=== PATIENT | male | born 1925 | race Caucasian/White ===

== ENCOUNTER 2016-07-11 12:28 | Inpatient (IN) | payer MEDICARE, OTHER ==
[~2016-07-11] VITALS: Ht 160 cm; Wt 63.5 kg
[2016-07-11] MEDS ORDERED: METOPROLOL TAR100 M1 PO (14:53)
[2016-07-11] MEDS ORDERED: PROSCAR5 MG PO ×2 (14:53→14:55)
[2016-07-11] MEDS ORDERED: ACETAMINOPHEN500 M1 PO (14:54)
[2016-07-11] MEDS ORDERED: STOOL SOFTENER100 M1 PO (14:54)
[2016-07-11 15:22] VITALS: BP 166/90; BMI 24.8
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
[2016-07-11 15:44] LABS: BASOPHILS 0.5 % (0-2); EOSINOPHILS 1.5 % (0-7); HEMOGLOBIN 15.2 g/dL (13.5-17.5); IMMATURE GRANULOCYTES 0.2 % (0-5); LYMPHOCYTES 13.8 % (15-50); MCH 33.5 pg (26.0-34.0); MCHC 34.5 g/dL (31.0-37.0); MCV 96.9 fL (80.0-100.0); MEAN PLATELET VOLUME 9.7 fL (7.4-10.4); MONOCYTES 10.8 % (2-11); NEUTROPHILS 73.2 % (40-80); PLATELET COUNT 185 10x3/uL (130-400); RBC 4.54 10x6/uL (4.20-6.10); RDW 13.5 % (11.5-14.5); WBC 9.5 10x3/uL (4.8-10.8)
[2016-07-11 16:09] LABS: ALBUMIN 3.7 g/dL (3.4-5.0); ALKALINE PHOSPHATASE 52 U/L (46-116); ALT (SGPT) 24 U/L (10-68); BILIRUBIN - TOTAL 0.54 mg/dL (0.2-1.3); CALC OSMOLALITY 278 mosm/kg (275-300); CALCIUM 9.2 mg/dL (8.5-10.1); CARBON DIOXIDE 34.2 mmol/L (21.0-32.0); CHLORIDE - SERUM 102 mmol/L (98-107); CHOL - HDL RATIO 4.6 ratio (2.3-4.9); CHOLESTEROL, TOTAL 214 mg/dL (0-200); CREATININE - SERUM 0.8 mg/dL (0.6-1.3); GLUCOSE 91 mg/dL (74-106); HDL CHOLESTEROL 47 mg/dL (32-96); LDL CHOLESTEROL 153 mg/dL (0-100); LDL-HDL RATIO 3.3 ratio (1.5-3.5); POTASSIUM - SERUM 4.1 mmol/L (3.5-5.1); PROTEIN - SERUM 7.4 g/dL (6.4-8.2); SODIUM 140 mmol/L (136-145); THYROID STIMULATING HORMONE 1.37 uIU/mL (0.36-3.74); TRIGLYCERIDE 74 mg/dL (30-200); UREA NITROGEN 12 mg/dL (7-18); eGFR NON AFRICAN AMERICAN > 90 mL/min (90-120)
[2016-07-11 16:17] LABS: HEMOGLOBIN A1C 5.8 % (4.8-6.0)
--- NOTE | 2016-07-11 20:05 | NUR ---
RECEIVED IN HALLWAY. VERY CONFUSED. ATTEMPTS TO STAND WITHOUT ASSIST. RESISTANT TO CARE. RESTLESS. UNABLE TO REDIRECT AND REORIENT. PRN ATIVAN 0.5 MG IM GIVEN FOR ANXIETY. AT NURSES STATION ONE ON ONE CARE FOR SAFETY. REDIRECT AND REORIENT NEEDED. CONTINUES TO SIT AT NURSES STATION. CONTINUE PLAN OF CARE
[2016-07-11 23:31] VITALS: BP 156/96
[2016-07-12 07:25] LABS: RAPID PLASMA REAGIN Non Reactive (Non Reactive)
[2016-07-12 08:22] LABS: FOLATE (FOLIC ACID) - SERUM 5.9 ng/mL (>3.0)
--- NOTE | 2016-07-12 09:04 | NUR ---
Dr. Fisher office contacted regarding consult order.
[2016-07-12 10:14] VITALS: BP 123/71
[2016-07-12 11:16] LABS: VITAMIN D 25 HYDROXY 25.2 ng/mL (30.0-100.0)
--- NOTE | 2016-07-12 12:27 | NUR ---
Patient oriented to self only. Calm and cooperative today. Non-aggressive. [place] alarm on, slip socks on, monitored. Continue plan of care, continue to monitor
[2016-07-12 13:59] VITALS: Ht 160 cm; Wt 63.5 kg
--- NOTE | 2016-07-12 14:45 | PSY ---
PATIENT NAME:PHIL AKINS MEDICAL RECORD: [id number] : [birth year] LOCATION:[facility] ADMISSION DATE: 07/11/16 ACCOUNT: [id number] PSYCHIATRIC EVALUATION DATE OF EVALUATION: 07/11/16 Psychiatric Evaluation IDENTIFYING DATA: The patient is 89 years old and he is admitted to the hospital on a voluntary basis. CHIEF COMPLAINT: Aggression. HISTORY OF PRESENT ILLNESS: The patient is an elderly man, who lives at home with his . He has home healthcare workers and a known history of dementia. He has become confused, agitated, and physically aggressive with both. This has been done in a way that is a potential danger. He is referred to us by the home health social media marketing analyst for evaluation and treatment. The patient has little recollection of these events. In fact, he cannot even tell me how old he is. He has clearly impaired cognitively and has an advanced dementia. He did give me some history and answered some questions, which I will relate in this document, but at this point, he has only been here an hour, I do not have collateral sources of information and the information that he was able to give me is limited and questionable validity. PAST MEDICAL HISTORY: Significant for high blood pressure. PAST PSYCHIATRIC HISTORY: None by his account. FAMILY HISTORY: Unknown. ALLERGIES: No known drug allergies. CURRENT MEDECATIONS: The patient says he cannot remember what he takes. We will have to contact the pharmacy. SOCIAL HISTORY: The patient tells me he is from [place] that he is not a that he was a little too young for World War II and a little too old for the [place] War. He also tells me that he has a PhD in organic chemistry and worked for [employer]. He says he has been twice. He has children from his first marriage and his current and he had been for 20 years. He denies drug and alcohol abuse. MENTAL STATUS EXAMINATION: The patient is awake, alert and oriented to person and place only. His mood is euthymic. His affect appropriate. Thought processes are circumstantial. Memory, concentration and abstraction abilities are at least moderately impaired. He denies that he would actively seek to harm himself or others and he denies overt psychotic symptoms. ASSETS: Supportive family members. LIABILITIES: Limited insight. DIAGNOSTIC IMPRESSION: AXIS I: Senile dementia of the Alzheimer's type with behavioral disturbances. AXIS II: None. AXIS III: Hypertension. AXIS IV: Moderate stressors. AXIS V: Global assessment of functioning is 30. PLAN: At this time, the patient is admitted to the hospital secondary to aggressive behaviors associated with a dementing illness. He will be comprehensively evaluated and treated with mood stabilizing and memory enhancing medications. His long-term prognosis is guarded. TRANSINT:[id number] Voice Confirmation ID: [id number] DOCUMENT ID: [id number] ERNESTINE QUEEN MD at 1445 CC: [id number] DICTATION DATE: 07/11/16 1444 LIME SUPERVISOR: 07/11/16 1640 ADM IN [facility] [address] [place] [address]
--- NOTE | 2016-07-12 15:49 | NUR ---
Patient in dayroom, oriented to self only. Calm and compliant with medication. Patient reoriented. Resting with eyes close.
[2016-07-12 18:27] LABS: APPEARANCE CLEAR (CLEAR); BILIRUBIN NEGATIVE (NEGATIVE); COLOR YELLOW (YELLOW); GLUCOSE NEGATIVE (NEGATIVE); KETONE NEGATIVE (NEGATIVE); LEUKOCYTE ESTERASE TRACE (NEGATIVE); NITRITE NEGATIVE (NEGATIVE); PROTEIN 1+ mg/dL (NEGATIVE); RED CELLS - URINE 0-5 /hpf (0-5); UROBILINOGEN NORMAL (NORMAL)
[2016-07-12 18:28] LABS: BACTERIA FEW /hpf (NONE SEEN)
[2016-07-12 19:29] VITALS: BP 142/78
--- NOTE | 2016-07-12 21:20 | NUR ---
RECEIVED IN HALLWAY. SITTING IN RECLINING CHAIR WITH AKUA ALARM UNDER HIM. RESTLESS. CONFUSED. COOPERATIVE WITH CARE AND ASSESSMENT. REDIRECT AND REORIENT NEEDED. REINFORCE FALLS SAFETY. ONE ON ONE CARE FOR SAFETY. CONTINUES TO REST QUIETLY IN RECLINER. CONTINUE PLAN OF CARE
[2016-07-13 08:30] VITALS: BP 154/128
--- NOTE | 2016-07-13 10:00 | NUR ---
B) Rec'd pt in dining room, alert, no aggression noted at this time, mood somewhat agitated. I) Meds admin as ordered, martínez well with no s/s adverse reaction, group activity provided. R) Martínez meds well, non-participatory in group. P) Cont plan of care including meds and group activity.
--- NOTE | 2016-07-13 11:55 | NUR ---
Pt becoming increasingly agitated, experiencing agitation and anxiety. Lorazepam 0.5 mg admin PO for anxiety.
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
--- NOTE | 2016-07-13 15:15 | NUR ---
Resting in molly-chair, talking to other patient, calm at this time, no further aggressive episodes noted.
--- NOTE | 2016-07-13 16:35 | NUR ---
Resting quietly in donna-chair, eyes closed, resp even and unlabored, no s/s distress, snoring loudly.
--- NOTE | 2016-07-13 17:47 | PN ---
PATIENT:PHIL AKNIS MEDICAL RECORD: [id number] LOCATION:[facility] ADMISSION DATE: 07/11/16 PROGRESS NOTE DATE OF SERVICE: 07/12/2016 SUBJECTIVE: The patient's case was discussed with staff. He has no new complaint. OBJECTIVE: The patient is in good behavioral control with limited insight about his condition. He tolerates his medicines well. ASSESSMENT: No change in diagnoses. PLAN: Current medicines and therapies have been reviewed and will be maintained. Long-term prognosis is guarded. I am going to order a low dose of Xanax as a p.r.n. medication since the 0.5 mg of Ativan was too sedating. TRANSINT:[id number] Voice Confirmation ID: [id number] DOCUMENT ID: [id number] ERNESTINE QUEEN MD at 1747 CC: [id number] DICTATION DATE: 07/12/16 1455 DELIVERY DRIVER: 07/13/16 0056 ADM IN [facility] [address] [place] [id number]
--- NOTE | 2016-07-13 18:02 | NUR ---
Sitting at dining room table feeding self, alert, no difficulty chewing or swallowing, appetite good, no aggression noted, pleasant mood, denies pain or distress.
[2016-07-13 20:16] VITALS: BP 161/84
--- NOTE | 2016-07-14 00:46 | NUR ---
B) Recieved sitting in a donna chair in the day room alert and oriented to self only, confused and restless at times, tries to stand unassisted, I) Monitored for falls and safety, redirected as needed, R) PRN medications only this shift, resting now quietly in bed, P) Continue plan of care.
[2016-07-14 11:00] VITALS: BP 139/62
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
--- NOTE | 2016-07-14 20:15 | NUR ---
RECEIVED IN DAYROOM SITTING IN RECLINER. PLEASANT MOOD. CALM AND COOPERATIVE WITH CARE AND ASSESSMENT. COMPLIANT WITH MEDS. REDIRECT ANMD REORIENT NEEDED. AMBULATED TO BATHROOM WITH WALKER. GAIT SHAKEY AND UNSTEADY. WILL CONTINUE WITH PLAN OF CARE.
[2016-07-14 21:12] VITALS: BP 145/78
--- NOTE | 2016-07-15 00:41 | NUR ---
XANAX 0.25 MG PO GIVEN FOR INCREASED ANXIETY.
[2016-07-15 09:35] VITALS: BP 100/73
--- NOTE | 2016-07-15 12:38 | PN ---
PATIENT:PHIL AKINS MEDICAL RECORD: [id number] LOCATION:[facility] ADMISSION DATE: 07/11/16 PROGRESS NOTE DATE OF SERVICE: 07/14/2016 SUBJECTIVE: The patient's case was discussed with staff. He has no new complaint. OBJECTIVE: The patient continues to be very disorganized and delusional. He at times is quite aggressive. He has almost no insight and is very advanced in his dementia. ASSESSMENT: No change in diagnoses. PLAN: Current medicines have been reviewed and will be maintained. I am concerned about accumulation. He is very sensitive to medications. He will be monitored for any clinical changes. TRANSINT:[id number] Voice Confirmation ID: [id number] DOCUMENT ID: [id number] ERNESTINE QUEEN MD at 1238 CC: [id number] DICTATION DATE: 07/14/16 1317 TRANSPORTATION SPECIALIST: 07/15/16 0127 ADM IN [facility] [address] [place] [address]
--- NOTE | 2016-07-15 15:10 | NUR ---
B) PATIENT VERY SLEEPY THIS AM, BUT HE AWAKENED IN THE AFTERNOON, HE IS CONFUSED AND HAS TRIED TO GET UP AND WALK BY HIMSELF, HE IS NOT ABLE TO AMBULATE BY HIMSELF, BUT HE CAN WALK WITH STAFF AND THE USE OF A WALKER. I) PROVIDE PRESCRIBED MEDS, REDIRECT NEEDED. R) PATIENT IS COMPLIANT WITH MEDS. P) CONTINUE PLAN OF CARE.
[2016-07-15 19:30] VITALS: BP 123/81
--- NOTE | 2016-07-15 20:20 | NUR ---
RECIVED IN DAYROOM SITTING IN RECLINER. CALM AND COOPERATIVE WITH ASSESSMENT AND CARE. VSS. CONSTANTLY TRIES TO STAND UP FROM RECLINER. REDIRECTED AND REORIENTED. VSS. CONTINUES TO SIT IN RECLINER QUIETLY. MEDICATION COMPLIANT. CONTINUE PLAN OF CARE.
[2016-07-16 09:02] VITALS: BP 140/80
--- NOTE | 2016-07-16 10:43 | NUR ---
LATE ENTRY FROM 07/14 SW MET WITH PT'S , BRENDA, TO DISCUSS PT'S CONDITION. BRENDA STATED SHE UNDERSTOOD HIS DISEASE PROGRESSION. SW DISCUSSED PLACEMENT RECOMMENDATION AND PT'S STATED SHE WANTED TO TAKE HIM BACK TO THE HOME ENVIRONMENT.
--- NOTE | 2016-07-16 12:41 | NUR ---
B) PATIENT IS AWAKE AND ALERT, BUT HE IS CONFUSED. THIS AM WHEN STAFF WERE TRYING TO GET HIM OUT OF BED HE FOUGHT WITH THEM SAYING "LEAVE ME ALONE, I DON'T WANT TO GET OUT OF BED" BUT ONCE PATIENT WAS UP AND DRESSED HE BEGAN SMILING AND HE WAS COOPERATIVE, REMIANS CONFUSED, KNOWS HIS NAME ONLY. I) PROVIDE PRESCRIBED MEDS. R) PATIENT IS COMPLIANT WITH MEDS. P) CONTINUE PLAN OF CARE.
--- NOTE | 2016-07-16 17:20 | NUR ---
PATIENT'S SPOUSE SAYS SHE WOULD LIKE HIM TO COME HOME IF HE IS READY. "HE CAN SLEEP AT HOME JUST EASY HE CAN HERE". EXPLAINED TO PATIENT THAT WE JUST DO NOT WANT HIM TO BE AGGRESSIVE. SHE SAID "OH, HE NEVER WAS".
[2016-07-16 19:30] VITALS: BP 115/87
--- NOTE | 2016-07-17 03:00 | NUR ---
B) Recieved patient in the day room sitting in a donna chair, alert and oriented to self only, restless at times, tries to stand unassisted, I) Administered perscribed medications, redirected as needed, monitored for falls and safety, R) Medication compliant, resistant to redirection, P) Continue plan of care, continue to monitor.
[2016-07-17 08:57] VITALS: BP 156/94
--- NOTE | 2016-07-17 16:19 | NUR ---
Patient in dayroom, oriented to self only. He is compliant with medication, eating with assist, eats almost all of his meals with assist due to tremors. Patient has been non-aggressive, and calm but is very confused at where he is and why. Patient reoriented, continue to monitor.
[2016-07-17 19:30] VITALS: BP 141/89
--- NOTE | 2016-07-17 22:13 | NUR ---
B) Recieved patient sitting in a gerichair in the day room, alert and oriented to self, watching TV, I) Administered perscribed medication, monitored for falls and safety, redirected as needed, R) Medication compliant, restless at times, P) Continue plan of care.
[2016-07-18 07:00] VITALS: BP 157/80
--- NOTE | 2016-07-18 09:54 | PN ---
PATIENT:PHIL AKINS MEDICAL RECORD: [id number] LOCATION:[facility] ADMISSION DATE: 07/11/16 PROGRESS NOTE DATE OF SERVICE: 07/15/2016 SUBJECTIVE: The patient's case was discussed with staff. He has no new complaint. OBJECTIVE: The patient is in good behavioral control with limited insight about his condition. He tolerates his medicines well. ASSESSMENT: No change in diagnoses. PLAN: Brief supportive and educational interventions were made. Long-term prognosis is guarded. I am going to start the patient on a low dose of scheduled Xanax for his agitation. TRANSINT:[id number] Voice Confirmation ID: [id number] DOCUMENT ID: [id number] ERNESTINE QUEEN MD at 0954 CC: [id number] DICTATION DATE: 07/15/16 1252 DISPLAY AND BANNER DESIGNER: 07/16/16 0026 ADM IN [facility] [address] [place] [place] [id number]
[2016-07-18 19:42] VITALS: BP 179/91
--- NOTE | 2016-07-18 19:48 | NUR ---
RECEIVED IN HALLWAY OUTSIDE OF NURSES STATION. SITTING IN RECLINING CHAIR. CALM AND COOPERATIVE WITH CARE AND ASSESSMENTS. NO SIGNS OF AGGRESSION. REDIRECT AND REORIENT NEEDED. CONTINUES TO SIT QUIETLY IN RECLINER. CONTINUE PLAN OF CARE
[2016-07-19 07:00] VITALS: BP 160/96
--- NOTE | 2016-07-19 14:21 | PN ---
PATIENT:PHIL AKINS MEDICAL RECORD: [id number] LOCATION:[facility] ADMISSION DATE: 07/11/16 PROGRESS NOTE DATE OF SERVICE: 07/18/2016 SUBJECTIVE: The patient's case was discussed with staff. He has no new complaint. OBJECTIVE: The patient is in good behavioral control, but extremely impaired cognitively. ASSESSMENT: No change in diagnoses. PLAN: The patient will be given a small dose of trazodone to assist with sleep consolidation. His long-term prognosis is guarded. TRANSINT:[id number] Voice Confirmation ID: [id number] DOCUMENT ID: [id number] ERNESTINE QUEEN MD at 1421 CC: [id number] DICTATION DATE: 07/18/16 1010 SURGICAL BRACE MAKER: 07/18/16 1128 ADM IN [id number] [place] [address]
--- NOTE | 2016-07-19 14:23 | NUR ---
Nutrition follow-up: Diet: REgular PO intake ~50-75% of meals Labs reviewed No BM since admit ?? Wt: 140# RDN following.
--- NOTE | 2016-07-19 16:55 | NUR ---
Patient oriented to self only, he was reoriented. He has been cooperative with medication, and non-aggressive. Patient has pleasant and smiling during visitation with today. Continue to monitor
--- NOTE | 2016-07-19 19:17 | NUR ---
RECEIVED IN DAYROOM. SITTING IN RECLINING CHAIR. NO SOCIALIZING WITH PEERS. CALM AND COOPERATIVE WITH CARE AND ASSESSMENTS. NO SIGNS OF AGGRESSION. REDIRECT AND REORIENT NEEDED. CONTINUES TO SIT QUIETLY. CONTINUE PLAN OF CARE
[2016-07-19 19:42] VITALS: BP 143/86
[2016-07-20 08:00] VITALS: BP 125/62
--- NOTE | 2016-07-20 10:30 | NUR ---
ALERT AND ORIENTED TO NAME ONLY, SMILING AND IS PLEASANT. NO AGGRESSION. IN GOOD BEHAVIOR CONTROL. COOPERATIVE WITH CARE. COMPLIANT WITH MEDICATIONS. CONTINUE WITH PLAN OF CARE.
--- NOTE | 2016-07-20 13:01 | PN ---
PATIENT:PHIL AKINS MEDICAL RECORD: [id number] LOCATION:[facility] ADMISSION DATE: 07/11/16 PROGRESS NOTE DATE OF SERVICE: 07/19/2016 SUBJECTIVE: The patient's case was discussed with staff, he has no new complaint. OBJECTIVE: The patient denies intent to harm himself or others. He does tolerate his medicines well. ASSESSMENT: No change in diagnoses. PLAN: Current medicines and therapies have been reviewed and will be maintained. Long-term prognosis is guarded. TRANSINT:[id number] Voice Confirmation ID: [id number] DOCUMENT ID: [id number] ERNESTINE QUEEN MD at 1301 CC: [id number] DICTATION DATE: 07/19/16 1443 [employer]OS[employer] D[employer] AX CONSULTANT: 07/19/16 2243 ADM IN [facility] [address] [place] [address]
[2016-07-20] MEDS ORDERED: XANAX0.25 MG PO (13:09)
[2016-07-20] MEDS ORDERED: ABILIFY2 MG PO (13:09)
[2016-07-20] MEDS ORDERED: TRAZODONE HCL50 MG PO (13:09)
[2016-07-20] MEDS ORDERED: NAMENDA5 MG PO (13:09)
[2016-07-20] MEDS ORDERED: VITAMIN D5000 UNIT PO (13:10)
[2016-07-20 19:50] VITALS: BP 140/70
--- NOTE | 2016-07-21 00:44 | NUR ---
B) Recieved sitting in a gerichair in the day room alert and oriented to self, restless at times, calm and cooperative I) Administered perscribed medications, monitored for falls and safety, R) Medication compliant, resting quietly in bed now, P) Continue plan of care.
[2016-07-21 08:00] VITALS: BP 113/66
--- NOTE | 2016-07-21 11:39 | NUR ---
FAXED PAPERWORK DISCHARGE ORDER, HOSPICE ORDER, MEDICATION LIST TO [facility], CALLED [facility], LEFT MESSAGE FOR MEDS TO BE ORDERED NO REFILLS.
--- NOTE | 2016-07-21 11:48 | NUR ---
ATTEMPTED TO CALL REPORT TO LAZARA DSOUZA WITH HOSPICE, BUT SHE WILL CALL BACK.
--- NOTE | 2016-07-21 12:11 | NUR ---
REPORT GIVEN TO LAZARA.
--- NOTE | 2016-07-21 13:00 | NUR ---
SPOUSE CAME TO PICK PATIENT UP. HE DID WALK WITH HIS WALKER TO THEIR CAR AND HE IS NOW DISCHARGED FROM THE UNIT TO THE CARE OF HIS .
--- NOTE | 2016-07-21 15:59 | PN ---
PATIENT:PHIL AKINS MEDICAL RECORD: [id number] LOCATION:[facility] ADMISSION DATE: 07/11/16 PROGRESS NOTE DATE OF SERVICE: 07/20/2016 SUBJECTIVE: The patient's case was discussed with staff. He has no new complaint. OBJECTIVE: The patient is severely impaired cognitively, but he is eating and sleeping reasonably well. ASSESSMENT: No change in diagnoses. PLAN: The patient will be transitioned out of the hospital tomorrow. His long-term prognosis is guarded. Brief supportive and educational interventions were made. TRANSINT:[id number] Voice Confirmation ID: [id number] DOCUMENT ID: [id number] ERNESTINE QUEEN MD at 1559 CC: [id number] DICTATION DATE: 07/20/16 1311 SYBASE DEVELOPER: 07/20/16 1945 DIS IN 07/21/[id number] [place] [address]
--- NOTE | 2016-07-25 13:05 | PN ---
PATIENT:PHIL AKINS MEDICAL RECORD: [id number] LOCATION:[facility] ADMISSION DATE: 07/11/16 PROGRESS NOTE DATE OF SERVICE: 07/21/2016 SUBJECTIVE: The patient's case was discussed with staff. He has no new complaint. OBJECTIVE: The patient is in good behavioral control with limited insight about his condition. He tolerates his medicines well. ASSESSMENT: No change in diagnoses. PLAN: The patient has been discharged to home, [facility], will be in the home and following him. His long-term prognosis is guarded. TRANSINT:[id number] Voice Confirmation ID: [id number] DOCUMENT ID: [id number] ERNESTINE QUEEN MD at 1305 CC: [id number] DICTATION DATE: 07/21/[address] MAGISTRATE: 07/21/163 DIS IN 07/21/16 [id number] [place] [address]
== END 2016-07-21 13:15 | disposition home health service (06) | DRG 57 ==
LOC: D.PSYCH 12:28
PROVIDERS: ADMIT Psychiatry & Neurology Psychiatry
DX: G30.1 Alzheimer's disease with late onset (principal); F02.81 Dementia in other diseases classified elsewhere, unspecified severity, with behavioral disturbance; I10 Essential (primary) hypertension; F41.9 Anxiety disorder, unspecified; R26.89 Other abnormalities of gait and mobility; Z91.81 History of falling; N40.0 Benign prostatic hyperplasia without lower urinary tract symptoms; E78.5 Hyperlipidemia, unspecified; E55.9 Vitamin D deficiency, unspecified